=== PATIENT | female | born 1990 | race Caucasian/White ===

== ENCOUNTER 2018-09-20 13:04 | Emergency (ER) | payer BC ==
[~2018-09-20] VITALS: Ht 172.7 cm; Wt 93.0 kg
--- OUTSIDE RECORDS SUMMARY | 2018-09-20 13:07 | XMS REPORT | Encounter Summary ---
Author Organization Unknown Address [address] [place] [id number] Phone [phone] Reason for Visit Medical Complaint Instructions 1. Strain of muscle and/or tendon of forearm cyclobenzaprine 10 mg tablet strain or sprain: care instructions Discussion Note Pt. is NAD. Take medications as prescribed; f/u with PCP/ER within 2-3 days or sooner should symptoms worsen as discussed. ER precautions and Care instructions given. Verbalized all instructions. No further questions upon d/c. Plan of Care Patient Instructions Try to stay as active as you can, but stop or reduce any activity that causes pain. Put ice or a cold pack on the sore muscle for 10 to 20 minutes at a time to stop swelling. Apply a heating pad on low or a warm cloth to your back for few minutes. Switch back and forth between hot and cold treatments. Prop up a sore arm on a pillow when you ice it or anytime you sit or lie down. Try to keep it higher than the level of your heart. This will help reduce swelling. Take pain medicines exactly as directed. Return to your usual level of activity slowly. Do not do anything that makes the pain worse. Seek immediate medical care if: You have severe or increasing pain. You have tingling, weakness, or numbness in the area. The area turns cold or changes color. Your cast or splint feels too tight. You have symptoms of a blood clot, such as: Pain in your calf, back of the knee, thigh, or groin. Worsening Redness and swelling in your arm You cannot move the strained part of your body. Reminders Provider Appointments None recorded. Lab None recorded. Referral None recorded. Procedures None recorded. Surgeries None recorded. Imaging None recorded. Medications Name Start Date atenolol 25 mg tablet TAKE ONE-HALF (1/2) TABLET(S) BY MOUTH AT BEDTIME. [place] Fe 12/14 (28) 1 mg-20 mcg (21)/75 mg (7) tablet TAKE ONE (1) TABLET(S) BY MOUTH ONCE A DAY __ APPOINTMENT NEEDED FOR FURTHER REFILLS __. cyclobenzaprine 10 mg tablet Take 1 tablet 3 times a day by oral route as directed for 7 days. promethazine 25 mg tablet TAKE ONE (1) TABLET(S) BY MOUTH EVERY SIX HOURS NEEDED. Medications Administered None recorded. Vitals Height Weight BMI Blood Pressure 5 ft 8 in 240 lbs 36.5 kg/m2 118/80 mm[Hg] Lab Results None recorded. Allergies Code Code System Name Reaction Severity Status Onset NKDA Problems None recorded. Procedures Date Name Performed by Gastric Bypass Information not available Vaccine List Vaccine Type influenza, injectable, quadrivalent 08/26/2017 Social History Smoking Status Never Smoker Past Encounters 03/17/2018 Strain of Muscle And/or Tendon of Forearm [facility]: [address] [id number], Ph. History of Present Illness Musculoskeletal Complaint Reported By: Patient HPI: Location: Location:. Quality: aching, constant. Severity: worsening, severe (8-10), interference with work, pain level 8/10. Duration: started 14 days ago, constant. Onset/Timing: abrupt onset, recurring; Started after she recently moved to new house, reports she might have strained while moving stuff. Context: unusual activity, while lifting; Pt. recently moved her house 2 weeks back. Alleviating factors: heat, ice, rest, elevation, stretching, limited weight bearing, OTC medication; Cannot take NSAIDS due to gastric sleeve surgery. Aggravating factors: lifting, carrying, twisting, pushing/pulling, weightbearing. Associated Symptoms: no fever/chills, no warmth, no redness, no swelling, no drainage, no ecchymosis, no weakness, no tingling, no numbness, no radiation, no catching/locking, no popping/clicking, no buckling, no grinding, no instability, no weight loss, no change in bowel/bladder habits, no headache, muscle aches; Also reports elbow pain Notes: Moved 2 weeks ago to this area. No hx of arthritis or any other bone or muscle related injury Review of Systems Basic Reported By: Patient Constitutional: Constitutional: no fever Cardiovascular: Cardiovascular: no chest pain, no shortness of breath, no known heart murmur Respiratory: Respiratory: no cough, no wheezing, no shortness of breath Musculoskeletal: Musculoskeletal: no muscle weakness, no back pain, muscle aches; right elbow pain Skin: Skin: no abnormal / changing mole, no jaundice, no rashes Neurologic: Neurologic: no loss of consciousness, no weakness, no numbness, no seizures, no dizziness, no headaches Physical Exam Adult Basic, Adult Female Complete Reported By: Patient Constitutional: General Appearance: obese. Level of Distress: NAD. Ambulation: ambulating normally Psychiatric: Mental Status: active and alert. Orientation: to time, to place, to person Lungs: Respiratory effort: no dyspnea, no tachypnea, no use of accessory muscles, no intercostal retractions. Auscultation: breath sounds normal Cardiovascular: Heart Auscultation: RRR, no murmurs. Pulses including femoral / pedal: normal throughout Musculoskeletal:: Motor Strength and Tone: normal motor strength, normal tone. Joints, Bones, and Muscles: normal movement of all extremities, no bony abnormalities, no contractures, no malalignment, tenderness; Pain reported on right medial forearm with elbow joint flexion and extension. No limited ROM. However, pain upon movement reported 8/10. No erythema or swelling noted on elbow or arm. Extremities: no cyanosis, no edema, no varicosities, no palpable cord Neurologic: Gait and Station: normal gait, normal station. Cranial Nerves: grossly intact. Sensation: grossly intact Skin: Inspection and palpation: no rash, no lesions, no ulcer, no abnormal nevi, no induration, no nodules, good turgor, no jaundice. Nails: normal
[2018-09-20] MEDS ORDERED: HYDROCODONE/APAP 10MG-325MG TAB PO ONE (13:30)
[2018-09-20] MEDS ORDERED: IBUPROFEN 400 MG TAB PO ONE (13:30)
--- NOTE | 2018-09-20 13:46 | Diagnostic Imaging Report ---
Exam: Left Ankle Series. History: Left ankle pain after wrong step Comparison: None. DISCUSSION: 3 views of the left ankle. There is normal bone mineralization. No evidence of acute, displaced fracture or dislocation. Ankle mortise is preserved.No osteochondral lesion. No abnormal soft tissue calcification or mass. No soft tissue swelling. IMPRESSION: 1. Unremarkable left ankle series. The staff physician below has personally reviewed this exam on the date of dictation. Signed by: Dr. Lavelle Hurt M.D. on 09/20/2018 1:42 PM
--- NOTE | 2018-09-20 14:03 | Diagnostic Imaging Report ---
Exam: Left foot series, 3 views. Clinical History: Foot pain after wrong step Comparison: None. Findings: 3 views of the left foot. There is normal bone mineralization. Negative for acute, displaced fracture or dislocation. Joint spaces are preserved. No soft tissue swelling. Impression: 1. Unremarkable left foot series. Signed by: Dr. Lavelle Hurt M.D. on 09/20/2018 1:59 PM
[2018-09-20] MEDS ORDERED: MORPHINE SULFATE 2 MG/ML SYR IM STA (16:23)
--- NOTE | 2018-09-21 02:42 | Discharge Summary ---
FINAL DIAGNOSES: 1. Infected encephalopathy most likely consistent with the patient's altered mental status, confusion, delirium with baseline mild dementia. 2. The patient has urinary tract infection with end-stage renal disease, required dialysis with moderate bacteria in the small amount of urine. 3. Hypoglycemia, low blood sugar, secondary to taking Amaryl, sulfonylurea, sucralfate causing low blood sugar due to end-stage renal disease, on dialysis. 4. Multiple baseline problems including complication of end-stage renal disease including elevation of uremia and potassium level secondary to missing dialysis. SUMMARY: This is an 86-year-old female known to have missed dialysis, but this time most likely from infection where she missed dialysis because she did not feel well and she was also confused. The patient came to the hospital with metabolic acidosis consistent with her uremia, hyperkalemia due to her end-stage renal disease. She had fluid overload from not getting dialysis. She started on dialysis and much improved. Her mental status still with confusion and presumptively with urinary tract infection; therefore, she started on antibiotics, to which she responded well. The patient had multiple allergies. She started on Azactam. She did much better now. Her mental status has significantly improved back to almost baseline. She did receive dialysis late last night; therefore, unable to send the patient home, but today the patient is stable, she is having lunch and we will discharge the patient home to resume all home medication except for Amaryl I will discontinue because of low blood sugar. We will continue with other medications the same. Cipro 250 mg daily for 5 days. The patient is to follow up with PCP, Dr. Alla Jordan and continue with her outpatient dialysis. Job#: [id number]
== END 2018-09-20 14:25 | disposition home or self-care (01) ==
LOC: FSED 13:04
DX: S93.492A Sprain of other ligament of left ankle, initial encounter (principal); X50.1XXA Overexertion from prolonged static or awkward postures, initial encounter; Y92.480 Sidewalk as the place of occurrence of the external cause; Z98.84 Bariatric surgery status
CPT/HCPCS: 29515; 73610; 73630; 99284; J2270

== ENCOUNTER 2021-07-27 05:26 | Observation (INO) | payer BC ==
[~2021-07-27] VITALS: Ht 172.7 cm; Wt 98.0 kg
[~2021-07-27 05:26] MED LIST: ATENOLOL50 MG PO; METHIMAZOLE10 MG PO
[2021-07-27] MEDS ORDERED: LIDOCAINE 1% W/EPINEPHRINE 20 ML VIAL ONE (06:31)
[2021-07-27] MEDS ORDERED: FENTANYL CITRATE/PF 100MCG/2 ML INJ ONE (10:02)
[2021-07-27] MEDS ORDERED: ONDANSETRON HCL INJ 2MG/ML 2ML 2 MG/ML VIAL ONE (10:08)
[2021-07-27] MEDS ORDERED: MEPERIDINE HCL INJ 25 MG/ML VIAL ONE (10:09)
[2021-07-27] MEDS ORDERED: DIPHENHYDRAMINE HCL INJ 50 MG/ML VIAL ONE (10:38)
[2021-07-27] MEDS ORDERED: SODIUM CHLORIDE 0.9% 50ML 50 ML ONE (10:51)
[2021-07-27] MEDS ORDERED: PROMETHAZINE HCL (IM) 25 MG/ML VIAL IM ONE (11:04)
[2021-07-27] MEDS ORDERED: ONDANSETRON HCL INJ 2MG/ML 2ML 2 MG/ML VIAL IV PRN (11:30)
[2021-07-27] MEDS ORDERED: HYDROCODONE/APAP 5MG-325MG TAB PO PRN (11:30)
[2021-07-27 11:40] VITALS: BP 103/71
[2021-07-27 11:43] LABS: ALBUMIN 3.4 g/dL (3.5-5.0); CALCIUM 8.4 mg/dL (8.4-10.2)
[2021-07-27 11:54] VITALS: BP 103/71
[2021-07-27] MEDS: HYDROCODONE/APAP 5MG-325MG TAB PO PRN ×2 (12:23→16:51)
[2021-07-27] MEDS: Cefazolin 1 GM in SODIUM CHLORIDE 0.9% 50ML 50 ML IV SCH ×2 (14:00→21:28)
[2021-07-27] MEDS: D5.45%NS/KCL 20MEQ 1,000 ML IV SCH ×2 (14:00→19:30)
[2021-07-27 16:06] VITALS: BP 90/70
[2021-07-27 19:06] LABS: ALBUMIN 3.5 g/dL (3.5-5.0); CALCIUM 8.2 mg/dL (8.4-10.2)
[2021-07-27 20:00] VITALS: BP 91/55
[2021-07-27 20:02] VITALS: BP 91/55
[2021-07-28] VITALS: BP 97/59
[2021-07-28] MEDS: D5.45%NS/KCL 20MEQ 1,000 ML IV SCH (03:30)
[2021-07-28 04:00] VITALS: BP 98/60
[2021-07-28] MEDS: Cefazolin 1 GM in SODIUM CHLORIDE 0.9% 50ML 50 ML IV SCH (05:21)
[2021-07-28] MEDS: HYDROCODONE/APAP 5MG-325MG TAB PO PRN (05:36)
[2021-07-28 07:13] VITALS: BP 98/60
[2021-07-28 07:50] VITALS: BP 104/71
== END 2021-07-28 08:30 | disposition home or self-care (01) ==
LOC: OR 05:26 → PACU V 10:24 → MED/SURG 11:05
PROVIDERS: ADMIT Otolaryngology; ATTEND Otolaryngology
DX: E05.10 Thyrotoxicosis with toxic single thyroid nodule without thyrotoxic crisis or storm (principal); Z20.822 Contact with and (suspected) exposure to COVID-19; Z01.818 Encounter for other preprocedural examination
CPT/HCPCS: 36415 ×2; 60240; 81025; 82040 ×2; 82310 ×2; 84132; 88305; 88307; 88331; G0378 ×2; J0690 ×2; J1200; J2175; J2405; J2550; J3010; U0002; 88172; 88173